=== PATIENT | female | born 1975 | race Two or more races ===

== ENCOUNTER 2021-05-21 06:18 | Day surgery (SDC) | payer OTHER ==
[~2021-05-21 06:18] MED LIST: CLONAZEPAM1 MG PO
== END 2021-05-21 16:25 | disposition home or self-care (01) ==
LOC: CIR.AMB 06:18
PROVIDERS: ATTEND Orthopaedic Surgery Hand Surgery
DX: S63.592A Other specified sprain of left wrist, initial encounter (principal); Z20.822 Contact with and (suspected) exposure to COVID-19